=== PATIENT | female | born 2000 | race African-American/Black ===

== ENCOUNTER 2022-06-28 11:28 | Emergency (ER) | payer OTHER ==
[~2022-06-28] VITALS: Ht 162.6 cm; Wt 81.6 kg
[~2022-06-28 11:28] MED LIST: FLONASE16 G1; SINGULAIR5 MG; TRILEPTAL150 MG PO; ZYRTEC ITCHY EYE5 ML
== END 2022-06-28 15:26 | disposition home or self-care (01) ==
LOC: EMR PED 11:28
DX: R42 Dizziness and giddiness (principal); G40.919 Epilepsy, unspecified, intractable, without status epilepticus; Z20.822 Contact with and (suspected) exposure to COVID-19; Z88.0 Allergy status to penicillin

== ENCOUNTER 2023-05-10 19:23 | Emergency (ER) | payer OTHER ==
[~2023-05-10] VITALS: Ht 157.5 cm; Wt 81.6 kg
[2023-05-10 20:45] LABS: HEMATOCRIT 36.4 % (36.0-45.00); HEMOGLOBIN 12.1 g/dL (12.0-15.00); MEAN CELL VOLUME 81.9 fL (80.00-100.00); MEAN CORPUSCULAR HEMOGLOBIN 27.1 pg (27.00-32.0); MEAN CORPUSCULAR HGB CONC 33.1 g/dl (32.0-36.0); PLATELET COUNT 293 K/uL (150-450); RED BLOOD COUNT 4.44 M/uL (4.00-6.00); RED CELL DISTRIBUTION WIDTH 15.1 % (11.5-14.5)
== END 2023-05-10 22:00 | disposition home or self-care (01) ==
LOC: ER 19:23 → EMR PED 19:26 → ER 19:26 → EMR PED 22:00
DX: N61.0 Mastitis without abscess (principal); Z88.0 Allergy status to penicillin

== ENCOUNTER 2023-05-13 08:37 | Emergency (ER) | payer OTHER ==
[~2023-05-13] VITALS: Ht 160 cm; Wt 81.6 kg
== END 2023-05-13 11:01 | disposition home or self-care (01) ==
LOC: ER 08:38 → EMR PED 08:46
DX: N61.1 Abscess of the breast and nipple (principal); Z88.0 Allergy status to penicillin; G40.802 Other epilepsy, not intractable, without status epilepticus

== ENCOUNTER 2023-05-18 14:10 | Outpatient (CLI) | payer OTHER | END 2023-05-18 14:18 | disposition home or self-care (01) | LOC: LAB 14:10 | PROVIDERS: ATTEND Specialist | DX: L02.91 Cutaneous abscess, unspecified (principal) ==

== ENCOUNTER 2024-03-08 13:57 | Emergency (ER) | payer OTHER ==
[~2024-03-08] VITALS: Ht 157.5 cm; Wt 80.3 kg
== END 2024-03-08 19:04 | disposition home or self-care (01) ==
LOC: ER 13:59
DX: S92.301A Fracture of unspecified metatarsal bone(s), right foot, initial encounter for closed fracture (principal); W19.XXXA Unspecified fall, initial encounter; Y93.89 Activity, other specified; Y92.89 Other specified places as the place of occurrence of the external cause; Y99.8 Other external cause status; Z88.0 Allergy status to penicillin